=== PATIENT | female | born 1985 | race Caucasian/White ===

== ENCOUNTER 2016-08-29 16:19 | Emergency (ER) | payer OTHER ==
[~2016-08-29] VITALS: Ht 175.3 cm; Wt 54.4 kg
[~2016-08-29 16:19] MED LIST: CIPRO500 MG PO; IRON18 MG PO; NORCO 5-325 TA1 EACH PO; PRENATAL CAPSU1 EACH; PRENATAL-FOLIC1 EACH PO; PRILOSEC10 MG PO
[2016-08-29] MEDS ORDERED: NITROFURANTOIN100 MG PO (18:55)
== END 2016-08-29 19:10 | disposition home or self-care (01) ==
LOC: ED 16:19
DX: N39.0 Urinary tract infection, site not specified (principal); M54.9 Dorsalgia, unspecified; D64.9 Anemia, unspecified; Z90.49 Acquired absence of other specified parts of digestive tract
CPT/HCPCS: 74176; 80053; 81001; 83690; 84703; 85025; 96361; 96374; 96375; 99284; J0696; J1885; J7030